=== PATIENT | female | born 1940 | race Caucasian/White ===

== ENCOUNTER → 2017-08-15 | Outpatient (CLI) | payer MEDICARE, OTHER ==
[~2017-08-15] MED LIST: ASPIRIN E.C. 8181 MG PO; ATIVAN 0.50.5 MG/TAB PO; CATAPRES 0.1MG0.1 MG PO; CELEXA 20MG20 MG/TAB PO; CLARITIN 1010 MG/TAB PO; COZAAR 25MG25 MG/TAB PO; COZAAR 50MG50 MG/TAB PO; HCTZ12.5TAB PO; HYZAAR 25 MG-101 TAB PO; LEVAQUIN 750MG750 M1 PO; LIPITOR 80MG80 MG PO; LISINOPRIL10 MG PO; LOPRESSOR 225 MG/TAB PO; LOPRESSOR100 MG PO; NASAL SPRAY 1515 ML NS; NO HOME MEDICATIONS; PLAVIX 75MG TAB75 MG PO; PROVENTIL0.09 MG/A1 IH; RT SPIRIVA18 MCG IH; UNABLE; VERAMYST27.5 MCG/A NS
== END ==
LOC: COL.PUL 07:37
DX: R06.02 Shortness of breath (principal); Z87.891 Personal history of nicotine dependence
CPT/HCPCS: J7674

== ENCOUNTER → 2018-06-05 | Outpatient (REF) | LOC: ZLAB.WCH 18:06 | DX: Z01.89 Encounter for other specified special examinations (principal) ==

== ENCOUNTER 2018-07-10 15:12 | Emergency (ER) | payer MEDICARE, OTHER ==
[~2018-07-10] VITALS: Ht 165.1 cm; Wt 110.4 kg
[2018-07-10 15:30] VITALS: TEMP 99.7
[2018-07-10 18:00] VITALS: BP 126/56; PULSE 65
[2018-07-10] MEDS ORDERED: CLEOCIN HCL300 MG PO (18:00)
== END 2018-07-10 18:00 | disposition home or self-care (01) ==
LOC: COL.ER 15:12
DX: L02.212 Cutaneous abscess of back [any part, except buttock and flank] (principal); I10 Essential (primary) hypertension; J44.9 Chronic obstructive pulmonary disease, unspecified; F32.9 Major depressive disorder, single episode, unspecified; F41.9 Anxiety disorder, unspecified; I25.10 Atherosclerotic heart disease of native coronary artery without angina pectoris; Z90.710 Acquired absence of both cervix and uterus; Z90.49 Acquired absence of other specified parts of digestive tract; Z90.89 Acquired absence of other organs; Z79.82 Long term (current) use of aspirin; Z87.891 Personal history of nicotine dependence

== ENCOUNTER → 2018-07-13 | Outpatient (CLI) | payer MEDICARE, OTHER ==
[~2018-07-13] MED LIST changes: +CLEOCIN HCL300 MG PO
== END ==
LOC: ZCOL.LAB 16:27
DX: L72.3 Sebaceous cyst (principal)